=== PATIENT | male | born 1950 | race Caucasian/White ===

== ENCOUNTER 2024-06-02 14:16 | Inpatient (IN) | payer MEDICARE, BC ==
[~2024-06-02] VITALS: Ht 175.3 cm; Wt 88.0 kg
[2024-06-02] MEDS ORDERED: amiodarone/D5 360MG/200ML BAG 200 ML IV SCH (14:40)
[2024-06-02] MEDS: amiodarone/D5 360MG/200ML BAG 200 ML IV ONE (15:27)
[2024-06-02 15:41] LABS: BASOPHILS # (AUTO) 0.1 X10'3 (0-0.2); BASOPHILS % (AUTO) 0.5 % (0-1); EOSINOPHILS % (AUTO) 0.2 % (0-6); HEMATOCRIT 38.3 % (42.0-52.0); HEMOGLOBIN 12.9 g/dl (14.0-17.9); LYMPHOCYTES # (AUTO) 1.3 X10'3 (1.1-4.8); LYMPHOCYTES % (AUTO) 11.7 % (21-51); MEAN CORPUSCULAR HEMOGLOBIN 31.6 PG (27.0-31.0); MEAN CORPUSCULAR HGB CONC 33.8 g/dL (33.0-36.5); MEAN CORPUSCULAR VOLUME 93.4 FL (78-98); MONOCYTES # (AUTO) 0.8 X10'3 (0-0.9); MONOCYTES % (AUTO) 7.7 % (2-12); NEUTROPHILS # (AUTO) 8.6 X10'3 (1.8-7.7); NEUTROPHILS % (AUTO) 79.9 % (42-75); PLATELET COUNT 286 X10'3 (140-440); RED CELL DISTRIBUTION WIDTH 15.4 % (11.5-14.5); WHITE BLOOD COUNT 10.7 X10'3 (4.5-11.0)
[2024-06-02 16:02] LABS: ALANINE AMINOTRANSFERASE 390 U/L (12-78); ALBUMIN 3.2 G/DL (3.4-5.0); ALBUMIN/GLOBULIN RATIO 0.7 (1.1-1.5); ALKALINE PHOSPHATASE 89 IU/L (46-116); ANION GAP 15 (8-16); ASPARTATE AMINO TRANSFERASE 490 U/L (10-37); BLOOD UREA NITROGEN 29 MG/DL (7-18); BUN/CREATININE RATIO 14.2 (10.0-20.0); CALCIUM 9.3 MG/DL (8.5-10.1); CHLORIDE 97 MMOL/L (99-107); CREATININE 2.04 MG/DL (0.60-1.10); GLUCOSE 87 MG/DL (70-104); POTASSIUM 4.6 MMOL/L (3.5-5.1); PRO BRAIN NATRIURETIC PEPTIDE 28411 PG/ML (0-125); SODIUM 132 MMOL/L (135-145); TOTAL CARBON DIOXIDE 19.9 MMOL/L (24-32); TOTAL PROTEIN 7.6 G/DL (6.4-8.2); eCRCL 33 ML/MIN; eGFR 32 ML/MIN
[2024-06-02 17:12] LABS: BILIRUBIN,URINE NEGATIVE (Neg); CLARITY,URINE CLEAR (Clear); COLOR,URINE YELLOW (Yellow); GLUCOSE, URINE NEGATIVE (Neg); KETONES,URINE NEGATIVE (Neg); LEUKOCYTE ESTERASE ,URINE NEGATIVE (Neg); NITRITES, URINE NEGATIVE (Neg); OCCULT BLOOD,URINE NEGATIVE (Neg); PH,URINE 5.5 (4.8-8.0); PROTEIN,URINE TRACE mg/dl (Neg); UROBILINOGEN,URINE 0.2 E.U/dL (0.2-1.0)
[2024-06-02 17:22] LABS: INR 1.7 INR; PROTHROMBIN TIME 17.4 SECONDS (9.0-12.0)
[2024-06-02 17:34] LABS: UA COLLECTION TYPE URINAL
[2024-06-02 17:35] LABS: SQUAMOUS EPITHELIAL CELL,UR NONE SEEN /LPF (FEW)
[2024-06-02 17:36] LABS: BACTERIA,URINE FEW /HPF (Neg); RBC,URINE NONE SEEN /HPF (0-2); WBC,URINE 0-4 /HPF (0-4)
[2024-06-02] MEDS ORDERED: magnesium hydroxide 30ml (MOM) UD suspension PO PRN (18:15)
[2024-06-02] MEDS ORDERED: acetaminophen 325mg tablet PO PRN (18:15)
[2024-06-02] MEDS ORDERED: potassium Cl 20 mEq SR tablet PO PRN ×2 (18:15)
[2024-06-02] MEDS ORDERED: magnesium sulf-water 4G/100mL 100 ML IV PRN (18:15)
[2024-06-02] MEDS ORDERED: ondansetron/PF 4mg/2ml inj IV PRN (18:15)
[2024-06-02] MEDS ORDERED: potassium Cl 40MEQ/1/2NS 520ml 520 ML IV PRN (18:15)
[2024-06-02] MEDS ORDERED: magnesium sulf-water 2g/50mL 50 ML IV PRN (18:15)
[2024-06-02] MEDS ORDERED: mag hydrox/Alum hydrox/simeth 30ml oral suspension PO PRN (18:15)
[2024-06-02] MEDS ORDERED: morphine 2 MG/ML inj. syringe IV PRN (18:15)
[2024-06-02] MEDS ORDERED: magnesium Cl slow-release 64mg tablet PO PRN (18:15)
[2024-06-02 18:46] LABS: APTT 30 SECONDS (22-32)
[2024-06-02 18:55] LABS: HEMOGLOBIN A1C 5.6 % (4.5-6.2)
[2024-06-02] MEDS: K and/or MAG REPLACEMENT MC SCH (20:00)
[2024-06-02] MEDS: furosemide 10 MG/1 ML 10ml inj IV SCH (20:35)
[2024-06-02] MEDS: docusate sod 100mg capsule PO SCH (20:58)
[2024-06-02] MEDS: heparin, porcine 5000 units/ml vial SQ SCH (21:02)
[2024-06-02 21:03] LABS: THYROID STIMULATING HORMONE 2.96 ulU/ml (0.34-4.50)
[2024-06-02 22:00] VITALS: BP 120/84; PULSE 86; RESP 15; TEMP 97.4; O2SAT 96
[2024-06-02] MEDS ORDERED: FLO0.4C PO (22:50)
[2024-06-02] MEDS ORDERED: METO200T37 PO (22:50)
[2024-06-02] MEDS ORDERED: ATOR20TA66 PO (22:50)
[2024-06-02] MEDS ORDERED: OMEP20CA16 PO (22:50)
[2024-06-02] MEDS ORDERED: APIX5TAB3 PO (22:50)
[2024-06-02] MEDS ORDERED: CELE-127 PO (22:50)
[2024-06-02 23:00] VITALS: RESP 15; O2SAT 96
[2024-06-03] VITALS (8 sets, daily range): BP systolic 105–124; BP diastolic 69–92; PULSE 85–94; RESP 13–28; TEMP 97.3–98.4; O2SAT 96–98
[2024-06-03] MEDS: amiodarone/D5 360MG/200ML BAG 200 ML IV ONE (03:07)
[2024-06-03] MEDS: pantoprazole 40mg Tablet.DR PO SCH (07:19)
[2024-06-03 07:42] LABS: BASOPHILS % (AUTO) 0.6 % (0-1); EOSINOPHILS # (AUTO) 0.2 X10'3 (0-0.9); HEMATOCRIT 34.9 % (42.0-52.0); HEMOGLOBIN 11.9 g/dl (14.0-17.9); LYMPHOCYTES # (AUTO) 1.7 X10'3 (1.1-4.8); LYMPHOCYTES % (AUTO) 21.3 % (21-51); MEAN CORPUSCULAR HEMOGLOBIN 31.8 PG (27.0-31.0); MEAN CORPUSCULAR HGB CONC 34.2 g/dL (33.0-36.5); MEAN PLATELET VOLUME 9.1 FL (7.4-10.4); MONOCYTES # (AUTO) 0.7 X10'3 (0-0.9); MONOCYTES % (AUTO) 8.8 % (2-12); NEUTROPHILS # (AUTO) 5.2 X10'3 (1.8-7.7); NEUTROPHILS % (AUTO) 66.3 % (42-75); PLATELET COUNT 253 X10'3 (140-440); RED BLOOD COUNT 3.75 X10'6 (4.70-6.10); RED CELL DISTRIBUTION WIDTH 15.3 % (11.5-14.5); WHITE BLOOD COUNT 7.8 X10'3 (4.5-11.0)
[2024-06-03 08:10] LABS: ALANINE AMINOTRANSFERASE 476 U/L (12-78); ALBUMIN 2.7 G/DL (3.4-5.0); ALBUMIN/GLOBULIN RATIO 0.7 (1.1-1.5); ALKALINE PHOSPHATASE 80 IU/L (46-116); ANION GAP 7 (8-16); ASPARTATE AMINO TRANSFERASE 649 U/L (10-37); BILIRUBIN,TOTAL 0.6 MG/DL (0.1-1.0); BLOOD UREA NITROGEN 30 MG/DL (7-18); BUN/CREATININE RATIO 14.6 (10.0-20.0); CALCIUM 8.5 MG/DL (8.5-10.1); CHLORIDE 100 MMOL/L (99-107); CHOL/HDL RATIO 2.2 (0.00-4.99); CHOLESTEROL 69 MG/DL (0-200); CREATININE 2.06 MG/DL (0.60-1.10); GLUCOSE 77 MG/DL (70-104); HDL CHOLESTEROL 32 MG/DL (35-60); LDL CHOLESTEROL 35 MG/DL (50-100); POTASSIUM 4.1 MMOL/L (3.5-5.1); SODIUM 134 MMOL/L (135-145); TOTAL CARBON DIOXIDE 27.3 MMOL/L (24-32); TOTAL PROTEIN 6.5 G/DL (6.4-8.2); TRIGLYCERIDES 43 MG/DL (20-135); eCRCL 33 ML/MIN; eGFR 32 ML/MIN
[2024-06-03] MEDS: celeCOXIB 100mg capsule PO SCH (09:10)
[2024-06-03] MEDS: tamsulosin 0.4mg capsule PO SCH (09:16)
[2024-06-03] MEDS: apixaban 5mg tablet PO SCH (09:17)
[2024-06-03] MEDS: atorvastatin 20mg tablet PO SCH (09:17)
[2024-06-03] MEDS: metoprolol succinate 25mg (24-HOUR) SR. Tablet PO SCH (09:25)
[2024-06-03 13:46] LABS: ALANINE AMINOTRANSFERASE 510 U/L (12-78); ALBUMIN 2.7 G/DL (3.4-5.0); ALBUMIN/GLOBULIN RATIO 0.7 (1.1-1.5); ALKALINE PHOSPHATASE 92 IU/L (46-116); AMYLASE 30 U/L (25-115); ASPARTATE AMINO TRANSFERASE 604 U/L (10-37); BILIRUBIN,DIRECT 0.2 MG/DL (0-0.3); BILIRUBIN,TOTAL 0.5 MG/DL (0.1-1.0); FREE T4 (FREE THYROXINE) 1.28 NG/DL (0.73-1.40); LIPASE 61 U/L (16-77); THYROID STIMULATING HORMONE 2.92 ulU/ml (0.34-4.50); TOTAL PROTEIN 6.8 G/DL (6.4-8.2)
[2024-06-03] MEDS ORDERED: DOBUTamine-DoBUTrex 500mg/D5W 250 ML IV SCH (18:40)
[2024-06-03] MEDS: amiodarone 200mg tablet PO SCH (20:12)
[2024-06-03] MEDS: EMPAGLIFLOZIN 10 MG TABLET PO SCH (20:12)
[2024-06-03] MEDS: DOBUTamine-DoBUTrex 500mg/D5W 250 ML IV SCH (23:05)
[2024-06-04] VITALS (16 sets, daily range): BP systolic 96–131; BP diastolic 66–87; PULSE 94–99; RESP 11–20; TEMP 97–98.7; O2SAT 92–100
[2024-06-04 06:50] LABS: BASOPHILS % (AUTO) 0.4 % (0-1); EOSINOPHILS # (AUTO) 0.2 X10'3 (0-0.9); EOSINOPHILS % (AUTO) 2.5 % (0-6); HEMATOCRIT 36.1 % (42.0-52.0); HEMOGLOBIN 12.3 g/dl (14.0-17.9); LYMPHOCYTES # (AUTO) 1.5 X10'3 (1.1-4.8); LYMPHOCYTES % (AUTO) 19.1 % (21-51); MEAN CORPUSCULAR HEMOGLOBIN 31.4 PG (27.0-31.0); MEAN CORPUSCULAR VOLUME 92.3 FL (78-98); MEAN PLATELET VOLUME 8.9 FL (7.4-10.4); MONOCYTES # (AUTO) 0.7 X10'3 (0-0.9); MONOCYTES % (AUTO) 9.1 % (2-12); NEUTROPHILS # (AUTO) 5.4 X10'3 (1.8-7.7); NEUTROPHILS % (AUTO) 68.9 % (42-75); PLATELET COUNT 242 X10'3 (140-440); RED BLOOD COUNT 3.91 X10'6 (4.70-6.10); RED CELL DISTRIBUTION WIDTH 15.3 % (11.5-14.5); WHITE BLOOD COUNT 7.9 X10'3 (4.5-11.0)
[2024-06-04 07:25] LABS: ALANINE AMINOTRANSFERASE 483 U/L (12-78); ALBUMIN 2.7 G/DL (3.4-5.0); ALBUMIN/GLOBULIN RATIO 0.7 (1.1-1.5); ALKALINE PHOSPHATASE 92 IU/L (46-116); ANION GAP 8 (8-16); ASPARTATE AMINO TRANSFERASE 399 U/L (10-37); BILIRUBIN,TOTAL 0.6 MG/DL (0.1-1.0); BLOOD UREA NITROGEN 26 MG/DL (7-18); BUN/CREATININE RATIO 14.7 (10.0-20.0); CALCIUM 8.3 MG/DL (8.5-10.1); CHLORIDE 104 MMOL/L (99-107); CREATININE 1.77 MG/DL (0.60-1.10); GLUCOSE 78 MG/DL (70-104); POTASSIUM 3.6 MMOL/L (3.5-5.1); PRO BRAIN NATRIURETIC PEPTIDE 17790 PG/ML (0-125); SODIUM 140 MMOL/L (135-145); TOTAL CARBON DIOXIDE 27.9 MMOL/L (24-32); TOTAL PROTEIN 6.4 G/DL (6.4-8.2); eCRCL 38 ML/MIN; eGFR 38 ML/MIN
[2024-06-04] MEDS: lisinopril 5mg tablet PO SCH (08:55)
[2024-06-04] MEDS: furosemide 20 MG/2 ML vial IV ONE (16:56)
[2024-06-04] MEDS: potassium Cl 20 mEq SR tablet PO ONE (16:56)
[2024-06-05] VITALS (7 sets, daily range): BP systolic 113–127; BP diastolic 58–85; PULSE 88–98; RESP 13–16; TEMP 97.8–98.2; O2SAT 95–97
[2024-06-05 08:14] LABS: BASOPHILS % (AUTO) 0.7 % (0-1); EOSINOPHILS # (AUTO) 0.3 X10'3 (0-0.9); EOSINOPHILS % (AUTO) 3.6 % (0-6); HEMATOCRIT 36.7 % (42.0-52.0); HEMOGLOBIN 12.5 g/dl (14.0-17.9); LYMPHOCYTES # (AUTO) 1.4 X10'3 (1.1-4.8); LYMPHOCYTES % (AUTO) 19.1 % (21-51); MEAN CORPUSCULAR HEMOGLOBIN 31.6 PG (27.0-31.0); MEAN PLATELET VOLUME 8.4 FL (7.4-10.4); MONOCYTES # (AUTO) 0.7 X10'3 (0-0.9); MONOCYTES % (AUTO) 10.3 % (2-12); NEUTROPHILS # (AUTO) 4.7 X10'3 (1.8-7.7); NEUTROPHILS % (AUTO) 66.3 % (42-75); PLATELET COUNT 228 X10'3 (140-440); RED BLOOD COUNT 3.95 X10'6 (4.70-6.10); RED CELL DISTRIBUTION WIDTH 15.6 % (11.5-14.5); WHITE BLOOD COUNT 7.1 X10'3 (4.5-11.0)
[2024-06-05 08:25] LABS: ALANINE AMINOTRANSFERASE 432 U/L (12-78); ALBUMIN 2.8 G/DL (3.4-5.0); ALBUMIN/GLOBULIN RATIO 0.7 (1.1-1.5); ALKALINE PHOSPHATASE 86 IU/L (46-116); ANION GAP 3 (8-16); ASPARTATE AMINO TRANSFERASE 249 U/L (10-37); BILIRUBIN,TOTAL 1.2 MG/DL (0.1-1.0); BLOOD UREA NITROGEN 25 MG/DL (7-18); BUN/CREATININE RATIO 15.2 (10.0-20.0); CALCIUM 8.4 MG/DL (8.5-10.1); CHLORIDE 103 MMOL/L (99-107); CREATININE 1.64 MG/DL (0.60-1.10); GLUCOSE 88 MG/DL (70-104); MAGNESIUM 2.1 MG/DL (1.5-2.4); POTASSIUM 3.7 MMOL/L (3.5-5.1); SODIUM 138 MMOL/L (135-145); TOTAL CARBON DIOXIDE 31.6 MMOL/L (24-32); TOTAL PROTEIN 6.7 G/DL (6.4-8.2); eCRCL 41 ML/MIN; eGFR 42 ML/MIN
[2024-06-05] MEDS ORDERED: EMPA10TA PO (12:33)
[2024-06-05] MEDS ORDERED: LISI5TAB22 PO (12:33)
[2024-06-05] MEDS ORDERED: AMI200T PO (12:33)
[2024-06-05] MEDS ORDERED: FURO-150 PO (12:33)
[2024-06-06 05:12] LABS: HBSAG SCREEN Negative (Negative); HEP B CORE AB, IGM Negative (Negative); HEP B SURF AB Non Reactive (.); HEPATITIS C VIRUS ANTIBODY Non Reactive (Non Reactive)
== END 2024-06-05 15:07 | disposition home or self-care (01) | DRG 441 ==
LOC: ER 14:16 → ED HOLD 17:43 → EDBEDREQTM 21:51 → PCU 3S 23:09
PROVIDERS: ADMIT Family Medicine; ATTEND Family Medicine
DX: K72.00 Acute and subacute hepatic failure without coma (principal); I50.23 Acute on chronic systolic (congestive) heart failure; N17.0 Acute kidney failure with tubular necrosis; I13.0 Hypertensive heart and chronic kidney disease with heart failure and stage 1 through stage 4 chronic kidney disease, or unspecified chronic kidney disease; E87.1 Hypo-osmolality and hyponatremia; I48.0 Paroxysmal atrial fibrillation; N18.9 Chronic kidney disease, unspecified; I25.10 Atherosclerotic heart disease of native coronary artery without angina pectoris; Z66 Do not resuscitate; I25.5 Ischemic cardiomyopathy; N40.0 Benign prostatic hyperplasia without lower urinary tract symptoms; C76.8 Malignant neoplasm of other specified ill-defined sites; K80.20 Calculus of gallbladder without cholecystitis without obstruction; E78.5 Hyperlipidemia, unspecified; E03.9 Hypothyroidism, unspecified; I08.3 Combined rheumatic disorders of mitral, aortic and tricuspid valves; Z88.0 Allergy status to penicillin; Z79.01 Long term (current) use of anticoagulants
CPT/HCPCS: 36415; 71045; 76700; 80053; 80061; 80076; 81001; 82150; 83036; 83690; 83735; 83880; 84439; 84443; 84484; 85025; 85610; 85730; 86705; 86706; 86803; 87081; 87340; 87522; 93005; 93306; 96365; 97116; 97161; 97530; 99285; G0378; J0282; J1250; J1644; J1940